=== PATIENT | male | born 1950 | race Two or more races ===

== ENCOUNTER 2018-02-15 23:02 | Inpatient (IN) | payer MEDICARE ==
[~2018-02-15] VITALS: Ht 170.2 cm; Wt 68.0 kg
[2018-02-16 02:07] LABS: BASOPHILS % 0.5 % (0.0-2.0); EOSINOPHILS % 1.9 % (0.0-5.0); HEMATOCRIT. 36.1 % (42.0-52.0); HEMOGLOBIN. 11.9 g/dL (14.0-18.0); LYMPHOCYTES % 13.4 % (20.0-50.0); MEAN CORPUSCULAR HEMOGLOBIN 30.9 pg (28.0-32.0); MEAN CORPUSCULAR VOLUME 93.7 fL (80.0-94.0); MEAN PLATELET VOLUME 8.4 fl (7.4-10.4); MONOCYTES % 4.8 % (2.0-8.0); NEUTROPHILS % 79.4 % (40.0-76.0); PLATELET 292 x1000/uL (130-400); RED BLOOD CELL COUNT 3.85 mill/uL (4.7-6.1); RED CELL DISTRIBUTION WIDTH 14.3 % (11.6-14.6)
[2018-02-16 02:10] LABS: CHLORIDE 109 mEq/L (98-107)
[2018-02-16 02:11] LABS: INR 1.1; PROTHROMBIN TIME 10.7 sec (9.1-11.1)
[2018-02-16 02:11] LABS: CLARITY URINE CLEAR (CLEAR); COLOR URINE YELLOW (YELLOW); KETONES URINE TRACE (NEGATIVE); LEUKOCYTE ESTERASE URINE 1+ (NEGATIVE); NITRITE URINE NEGATIVE (NEGATIVE); OCCULT BLOOD URINE NEGATIVE (NEGATIVE); PROTEIN URINE NEGATIVE (NEGATIVE); SPECIFIC GRAVITY URINE 1.021 (1.005-1.030); UROBILINOGEN URINE 0.2 E.U./dL (0.2-1.0)
[2018-02-16] MEDS ORDERED: SODIUM CHLORIDE 0.9% 1,000 ML IV NR (02:35)
[2018-02-16 04:22] VITALS: BP 144/74
[2018-02-16] MEDS ORDERED: PRAS10TA6 PO (04:51)
[2018-02-16] MEDS ORDERED: METF-416 MT (04:51)
[2018-02-16] MEDS ORDERED: GLIP2.5T17 PO (04:59)
[2018-02-16] MEDS ORDERED: S350 MT (04:59)
[2018-02-16] MEDS ORDERED: LISI-186 PO (04:59)
[2018-02-16] MEDS ORDERED: FENO145T36 MT (04:59)
[2018-02-16] MEDS ORDERED: TEMA30CA MT (04:59)
[2018-02-16] MEDS ORDERED: ASPI-1159 PO (04:59)
[2018-02-16] MEDS ORDERED: FLUO40CA8 PO (04:59)
[2018-02-16] MEDS ORDERED: LIP40 MT (04:59)
[2018-02-16] MEDS ORDERED: ACETAMINOPHEN 325MG TABLET PO PRN (06:30)
[2018-02-16] MEDS ORDERED: HYDROCODONE/ACETAMINOPHEN 5/325MG TABLET PO PRN (06:30)
[2018-02-16] MEDS ORDERED: MAGNESIUM/ALUMINUM HYDROXIDE/SIMETHICONE 30ML UDC PO PRN (06:30)
[2018-02-16] MEDS ORDERED: ONDANSETRON HCL 4MG/2ML INJ IV PRN (06:30)
[2018-02-16] MEDS ORDERED: CLONIDINE 0.1MG TABLET PO PRN (06:30)
[2018-02-16] MEDS ORDERED: DOCUSATE SODIUM 100MG CAPSULE PO PRN (06:30)
[2018-02-16] MEDS ORDERED: SODIUM POLYSTYRENE SULFONATE 15 G/60 ML BOT PO SCH (08:00)
[2018-02-16] MEDS ORDERED: SODIUM CHLORIDE 0.9% 1,000 ML IV SCH (08:45)
[2018-02-16] MEDS ORDERED: ASPIRIN 81MG EC TABLET PO SCH (09:00)
[2018-02-16] MEDS: CLOPIDOGREL 75MG TABLET PO SCH ×2 (09:15→09:33)
[2018-02-16] MEDS: AMLODIPINE 10MG TABLET PO SCH (09:29)
[2018-02-16] MEDS: ENOXAPARIN 40MG/0.4ML SYR SUBCUT SCH (09:30)
[2018-02-16] MEDS: ASPIRIN 81MG TABLET PO SCH (09:33)
[2018-02-16] MEDS: SODIUM CHLORIDE 0.9% 1,000 ML IV SCH ×2 (09:43→21:44)
[2018-02-16 12:00] VITALS: BP_SYST 150; BP_SYST 166; BP_DIAS 72; BP_DIAS 75
[2018-02-16 16:30] VITALS: BP 154/68
[2018-02-16 17:01] LABS: CREATINE KINASE 72 IU/L (39-308)
[2018-02-16 17:02] LABS: CREATINE KINASE MB FRACTION < 1.0 ng/mL (0.5-3.6)
[2018-02-16 20:04] VITALS: BP 122/59
[2018-02-17] VITALS (8 sets, daily range): BP systolic 129–148; BP diastolic 57–89
[2018-02-17 01:32] LABS: CREATINE KINASE 60 IU/L (39-308)
[2018-02-17 01:34] LABS: CREATINE KINASE MB FRACTION < 1.0 ng/mL (0.5-3.6)
[2018-02-17 07:15] LABS: CHLORIDE 109 mEq/L (98-107)
[2018-02-17 07:20] LABS: BASOPHILS % 0.6 % (0.0-2.0); EOSINOPHILS % 5.3 % (0.0-5.0); HEMATOCRIT. 36.3 % (42.0-52.0); HEMOGLOBIN. 12.2 g/dL (14.0-18.0); LYMPHOCYTES % 34.3 % (20.0-50.0); MEAN CORPUSCULAR VOLUME 92.5 fL (80.0-94.0); MEAN PLATELET VOLUME 8.3 fl (7.4-10.4); MONOCYTES % 6.5 % (2.0-8.0); NEUTROPHILS % 53.3 % (40.0-76.0); PLATELET 291 x1000/uL (130-400); RED BLOOD CELL COUNT 3.93 mill/uL (4.7-6.1); RED CELL DISTRIBUTION WIDTH 14.2 % (11.6-14.6)
[2018-02-17 07:24] LABS: LDL CHOLESTEROL 76 mg/dL (5-100)
[2018-02-17 07:25] LABS: CREATINE KINASE 54 IU/L (39-308); CREATINE KINASE MB FRACTION < 1.0 ng/mL (0.5-3.6); HDL CHOLESTEROL 46 mg/dL (40-59)
[2018-02-17 07:26] LABS: T4 FREE 1.06 ng/dL (0.76-1.46)
[2018-02-17] MEDS: ENOXAPARIN 40MG/0.4ML SYR SUBCUT SCH (09:00)
[2018-02-17] MEDS: CLOPIDOGREL 75MG TABLET PO SCH ×2 (09:00→09:53)
[2018-02-17] MEDS: AMLODIPINE 10MG TABLET PO SCH (09:53)
[2018-02-17] MEDS: ASPIRIN 81MG TABLET PO SCH (09:53)
[2018-02-17] MEDS: SODIUM CHLORIDE 0.9% 1,000 ML IV SCH (09:54)
== END 2018-02-17 13:45 | disposition home or self-care (01) | DRG 74 ==
LOC: ER 23:02 → 6WST 02-16 02:41 → EDBEDREQTM 02-16 02:43 → EDBEDREQ 02-16 02:43 → ENRESERV 02-16 03:15
PROVIDERS: ADMIT Hospitalist; ATTEND Hospitalist
DX: G90.8 Other disorders of autonomic nervous system (principal); N17.9 Acute kidney failure, unspecified; E11.22 Type 2 diabetes mellitus with diabetic chronic kidney disease; E87.5 Hyperkalemia; K30 Functional dyspepsia; K59.00 Constipation, unspecified; F41.9 Anxiety disorder, unspecified; I12.9 Hypertensive chronic kidney disease with stage 1 through stage 4 chronic kidney disease, or unspecified chronic kidney disease; I25.10 Atherosclerotic heart disease of native coronary artery without angina pectoris; N18.9 Chronic kidney disease, unspecified; Z95.2 Presence of prosthetic heart valve; Z79.899 Other long term (current) drug therapy; Z79.84 Long term (current) use of oral hypoglycemic drugs
CPT/HCPCS: 36415; 71045; 78582; 80061; 82550; 82553; 82962; 83036; 83880; 84439; 84443; 84484; 85379; 93005; 93970; 99285; A9558; C1893; J1650; J7030